=== PATIENT | male | born 1970 | race Two or more races ===

== ENCOUNTER 2024-08-05 20:56 | Emergency (ER) | payer OTHER, MEDICAID, SELFPAY ==
[2024-08-05 20:57] VITALS: BMI 34.1
[2024-08-05 21:06] VITALS: BP 166/99; PULSE 76; RESP 18; TEMP 36.7; O2SAT 99
--- NOTE | 2024-08-05 21:08 | EKG_ITS ---
[facility] Test Date: 2024-08-05 Pat Name: JERRY MUSTAFA Department: Room: - Gender: Male Hand Assembler: : 1970 Requested By: Sandro Fiore Order Number: [id number] Reading MD: Sandro Fiore Measurements Intervals [place] Rate: 79 P: 22 IL: 153 QRS: -40 QRSD: 103 T: 20 QT: 383 QTc: 439 Interpretive Statements SINUS RHYTHM LEFT AXIS DEVIATION [QRS AXIS < -30] PATTERN CONSISTENT WITH PULMONARY DISEASE Compared to ECG 02/24/2024 00:10:51 Left-axis deviation now present Left anterior fascicular block no longer present /store/S0/[id number]
--- NOTE | 2024-08-05 21:57 | PD.EDANX ---
ED Anxiety RME/HPI General Chief Complaint: General Adult/Misc Complain Stated Complaint: CHILLS/HIGH BP X30MIN Time Seen by Provider: 08/05/24 21:22 Arrival date/time: 08/05/24 20:56 53M with history of HTN and anxiety presents to ED with 30 min of heart palps, chills, and high BP at home. Patient denies CP and SOB. Patient states he usually takes anxiety meds, but he ran out. Patient also denies URI symptoms and fever. Limitations: no limitations Related Data Home Medications ?Medication ?Instructions ?Recorded ?Confirmed atorvastatin 40 mg tablet 40 mg PO HS 02/16/24 02/17/24 multivitamin 1 tab PO QDAY 02/16/24 02/17/24 simvastatin 20 mg tablet (Zocor) 20 mg PO QPM 02/16/24 02/17/24 Previous Rx's ?Medication ?Instructions ?Recorded docusate sodium 100 mg capsule 100 mg PO BID #40 caps 02/17/24 (Colace) hydrocodone 5 mg-acetaminophen 325 1 tab PO Q6H PRN pain (scale score 02/17/24 mg tablet 7-10) #15 tabs ibuprofen 600 mg tablet 600 mg PO Q8H PRN pain (scale 02/17/24 score 4-6) #15 tabs lactulose 10 gram/15 mL (15 mL) 10 g (15 mL) PO QDAY PRN 02/22/24 oral solution constipation #600 mL lorazepam 0.5 mg tablet (Ativan) 0.5 mg PO QDAY PRN anxiety #7 tabs 02/24/24 Allergies Allergy/AdvReac Type Severity Reaction Status Date / Time No Known Allergies Allergy Verified 08/05/24 21:00 Review of Systems Review of Systems Systems Reviewed: All systems reviewed, normal except as documented Constitutional Constitutional: Reports system reviewed and no additional complaints, except as documented, Reports as per HPI, Reports chills, Denies fever(s) and Denies headache(s) ENT Ears, Nose, Mouth, and Throat: Denies disequilibrium and Denies headache(s) Cardiovascular Cardiovascular: Reports system reviewed and no additional complaints, except as documented, Reports as per HPI, Denies chest pain, Denies dyspnea and Reports palpitations Respiratory Respiratory: Reports system reviewed and no additional complaints, except as documented, Denies cough and Denies dyspnea Gastrointestinal Gastrointestinal: Reports system reviewed and no additional complaints, except as documented, Denies abdominal pain, Denies nausea and Denies vomiting Neurologic Neurologic: Reports system reviewed and no additional complaints, except as documented, Denies confusion, Denies disequilibrium and Denies headache(s) Psychiatric Psychiatric: Reports as per HPI, Reports anxiety and Denies confusion Endocrine Endocrine: Reports palpitations Past Medical History Past Medical History NEUROLOGIC: Negative Neurological Disorders or Seizures CARDIAC: Positive Cardiac Disorders, Hypercholesterolemia and Hypertension (not taking meds); Negative Congestive Heart Failure RESPIRATORY: Negative Chronic Obstructive Pulmonary Disease (COPD) GASTROINTESTINAL: Positive Gastrointestinal Disorders and Obesity GENITOURINARY: Negative Genitourinary Disorders or Renal Disease MUSCULOSKELETAL: Positive Musculoskeletal Disorders and Fractures (right first toe) ENDOCRINE: Negative Endocrine Disorders, Diabetes Mellitus Type 1 or Diabetes Mellitus Type 2 HEMATOLOGIC: Negative Blood Disorders PSYCHO/SOCIAL: Positive Anxiety (no meds) OTHER HISTORY: Positive Hospitalization (HTN) and Chicken Pox; Negative Autoimmune Disease, Shingles, Falls, Blood Transfusions, Blood Transfusion Reaction, Anesthesia Reactions or Cancer Family History FAMILY HISTORY: Positive Family Cancer; Negative Family Psychiatric Problems, Family Respiratory Disorders, Family Cardiac Disorders, Family Gastrointestinal Problems, Family Surgery or Family Anesthesia Reaction Social History SMOKING STATUS: Never smoker ED Exam General Limitations: Present no limitations General appearance: Present alert, in no apparent distress and anxious Head Head exam: Present atraumatic Eye Eye exam: Present normal appearance, PERRL and EOMI ENT ENT exam: Present normal exam, normal oropharynx and mucous membranes moist Neck Neck exam: Present normal inspection, full ROM and trachea midline Chest Chest inspection: Present normal inspection and symmetric chest wall rise Respiratory Respiratory exam: Present normal lung sounds bilaterally Cardiovascular Cardiovascular exam: Present regular rate, normal rhythm and normal heart sounds Abdominal Exam Abdominal exam: Present soft and normal bowel sounds Extremities Exam Extremities exam: Present normal inspection and full ROM Back Exam Back exam: Present normal inspection and full ROM Neurological Exam Neurological exam: Present alert, oriented X3 and CN II-XII intact Psychiatric Psychiatric exam: Present normal affect and normal mood Skin Skin exam: Present warm, dry, intact and normal color Course Quality Measures none Orders Category Date Time Status EKG (ED ONLY) *Do not use* NOW Care 08/05/24 21:08 Completed EKG (ED Only) Stat Exams 08/05/24 21:08 Draft Diazepam [Valium] Med 08/05/24 21:23 Discontinued 10 mg PO X1 ONE Vital Signs Vital signs: Vital Signs Temperature 98.1 F 08/05/24 21:06 Pulse Rate 76 08/05/24 21:06 Respiratory Rate 18 08/05/24 21:06 Blood Pressure 166/99 H 08/05/24 21:06 Pulse Oximetry (%) 99 08/05/24 21:06 Oxygen Delivery Method Room Air 08/05/24 21:06 Anxiety MDM Narrative MDM Narrative: 53M with history of HTN and anxiety presents to ED with 30 min of heart palps, chills, and high BP at home. Patient denies CP and SOB. Patient states he usually takes anxiety meds, but he ran out. Patient also denies URI symptoms and fever. Physical exam reveals clear ENT and lungs. RRR. Patient is afebrile, alert, but anxious. EKG is NSR. Valium relieve symptoms. Patient data External records reviewed:: [facility] previous records Clinical information provided by:: patient Social determinants that could affect healthcare access:: mental health Patient has the following chronic illnesses:: HTN and anxiety How is presenting disease/condition affected by chronic disease/condition?: exacerbated by Evaluation data The following diagnostics were reviewed and interpreted by me:: EKG tracing(s) Lab and/or radiology exams considered but not ordered:: ordered Interpretation Summary: above Medications / Prescriptions Medications or Prescriptions considered but not ordered:: ordered Medication administrations:: Medication Administration History Discontinued Medications Diazepam (Diazepam 5 Mg Tablet) 10 mg PO X1 ONE Stop: 08/05/24 21:24 Consultations Consultation(s) initiated? (list below): No Diagnosis Differential diagnosis anxiety: hyperventilation, panic disorder, acute anxiety and other (ACS) Most likely diagnosis given after review of the tests above:: anxiety Admission Indicated Admission indicated?: not indicated Admission Request Was there a request for admission?: No Disposition Plan Disposition Plan: Discharge Discharge Attestation Discharge Attestation: The patient and all family members were given an opportunity to ask questions and understood the discharge instructions. Discharge instructions specifically effects, indications for sooner follow up or return to the emergency department, and the expected course of current diagnosis. Patient condition: Stable Discharge Plan Plan Patient Disposition: HOME (Self Care) Disposition Comment: Stable Prescriptions/Referrals Prescriptions/Med Rec: No Action multivitamin Tablet 1 tab PO QDAY atorvastatin 40 mg tablet 40 mg PO HS Patient Comments: take 1 tablet by mouth once daily simvastatin [Zocor] 20 mg Tablet 20 mg PO QPM docusate sodium [Colace] 100 mg capsule 100 mg PO BID Qty: 40 0RF ibuprofen 600 mg tablet 600 mg PO Q8H PRN (Reason: pain (scale score 4-6)) Qty: 15 0RF hydrocodone-acetaminophen 5-325 mg tablet 1 tab PO Q6H MDD 4 PRN (Reason: pain (scale score 7-10)) Qty: 15 0RF lactulose 10 gram/15 mL (15 mL) solution 10 g PO QDAY PRN (Reason: constipation) Qty: 600 0RF lorazepam [Ativan] 0.5 mg tablet 0.5 mg PO QDAY PRN (Reason: anxiety) Qty: 7 0RF Referrals: Jose Guadalupe Cardona MD [Primary Care Provider] - In 1 week Problem List Clinical Impression: Anxiety Patient/Caregiver Discharge Instructions Education Materials: Your Body's Response to Anxiety Additional Instructions: Please follow-up with PCP within 24-48 hours and return immediately if symptoms worsen. Print Language: Citizen Of [place] Stand Alone Forms: Patient Portal Info Letter PA/SIDE PIECE COVERER Supervising Physician MARINA/TYRONE Supervising Physician: Dr. Mi
[2024-08-05] MEDS: DIAZEPAM 5 MG TABLET 10 MG PO (22:25)
[2024-08-05 23:18] VITALS: BP 148/101; BP 149/96; PULSE 66; RESP 17; O2SAT 99
== END 2024-08-05 23:40 | disposition home or self-care (01) ==
PROVIDERS: Emergency Provider Emergency Medicine; PCP Family Medicine
DX: F41.9 Anxiety disorder, unspecified (principal); I10 Essential (primary) hypertension
CPT/HCPCS: 93005; 99283; A9270

== ENCOUNTER 2024-11-23 18:02 | Emergency (ER) | payer OTHER, MEDICAID, SELFPAY ==
--- NOTE | 2024-11-23 18:56 | EKG_ITS ---
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
[2024-11-23 19:27] VITALS: BP 124/77; PULSE 73; RESP 20; TEMP 36.8; O2SAT 97
--- NOTE | 2024-11-23 19:41 | XR_ITS ---
Examination: PA chest single view TECHNIQUE: Upright PA chest single view Date and time: November 23, 2024, 2018 hours Comparison February 24, 2024 INDICATIONS: Chest pain today. FINDINGS: Normal heart size. Lungs are clear. The osseous structures are intact IMPRESSION: No active disease.
--- NOTE | 2024-11-23 19:41 | PD.EDCHEST ---
ED Chest Pain RME/HPI General Chief Complaint: Chest Pain Stated Complaint: CHEST PAIN X 2 DAYS Time Seen by Provider: 11/23/24 19:40 Arrival date/time: 11/23/24 18:02 54M with history of HTN and anxiety presents to ED with several days of CP. Patient denies URI symptoms and SOB. Limitations: no limitations Related Data Home Medications ?Medication ?Instructions ?Recorded ?Confirmed atorvastatin 40 mg tablet 40 mg PO HS 02/16/24 02/17/24 multivitamin 1 tab PO QDAY 02/16/24 02/17/24 simvastatin 20 mg tablet (Zocor) 20 mg PO QPM 02/16/24 02/17/24 Previous Rx's ?Medication ?Instructions ?Recorded docusate sodium 100 mg capsule 100 mg PO BID #40 caps 02/17/24 (Colace) hydrocodone 5 mg-acetaminophen 325 1 tab PO Q6H PRN pain (scale score 02/17/24 mg tablet 7-10) #15 tabs ibuprofen 600 mg tablet 600 mg PO Q8H PRN pain (scale 02/17/24 score 4-6) #15 tabs lactulose 10 gram/15 mL (15 mL) 10 g (15 mL) PO QDAY PRN 02/22/24 oral solution constipation #600 mL lorazepam 0.5 mg tablet (Ativan) 0.5 mg PO QDAY PRN anxiety #7 tabs 02/24/24 Allergies Allergy/AdvReac Type Severity Reaction Status Date / Time No Known Allergies Allergy Verified 11/23/24 18:07 Review of Systems Review of Systems Systems Reviewed: All systems reviewed, normal except as documented Constitutional Constitutional: Reports system reviewed and no additional complaints, except as documented, Denies fever(s) and Denies headache(s) ENT Ears, Nose, Mouth, and Throat: Denies disequilibrium and Denies headache(s) Cardiovascular Cardiovascular: Reports system reviewed and no additional complaints, except as documented, Reports as per HPI, Reports chest pain and Denies dyspnea Respiratory Respiratory: Reports system reviewed and no additional complaints, except as documented, Denies cough and Denies dyspnea Gastrointestinal Gastrointestinal: Reports system reviewed and no additional complaints, except as documented, Denies abdominal pain, Denies nausea and Denies vomiting Neurologic Neurologic: Reports system reviewed and no additional complaints, except as documented, Denies confusion, Denies disequilibrium and Denies headache(s) Psychiatric Psychiatric: Denies confusion Past Medical History Past Medical History NEUROLOGIC: Negative Neurological Disorders or Seizures CARDIAC: Positive Cardiac Disorders, Hypercholesterolemia and Hypertension (not taking meds); Negative Congestive Heart Failure RESPIRATORY: Negative Chronic Obstructive Pulmonary Disease (COPD) GASTROINTESTINAL: Positive Gastrointestinal Disorders and Obesity GENITOURINARY: Negative Genitourinary Disorders or Renal Disease MUSCULOSKELETAL: Positive Musculoskeletal Disorders and Fractures (right first toe) ENDOCRINE: Negative Endocrine Disorders, Diabetes Mellitus Type 1 or Diabetes Mellitus Type 2 HEMATOLOGIC: Negative Blood Disorders PSYCHO/SOCIAL: Positive Anxiety (no meds) OTHER HISTORY: Positive Hospitalization (HTN) and Chicken Pox; Negative Autoimmune Disease, Shingles, Falls, Blood Transfusions, Blood Transfusion Reaction, Anesthesia Reactions or Cancer Family History FAMILY HISTORY: Positive Family Cancer; Negative Family Psychiatric Problems, Family Respiratory Disorders, Family Cardiac Disorders, Family Gastrointestinal Problems, Family Surgery or Family Anesthesia Reaction Social History SMOKING STATUS: Never smoker ED Exam General Limitations: Present no limitations General appearance: Present alert, in no apparent distress and anxious (mild) Head Head exam: Present atraumatic Eye Eye exam: Present normal appearance, PERRL and EOMI ENT ENT exam: Present normal exam, normal oropharynx and mucous membranes moist Neck Neck exam: Present normal inspection, full ROM and trachea midline Chest Chest inspection: Present normal inspection and symmetric chest wall rise Respiratory Respiratory exam: Present normal lung sounds bilaterally Cardiovascular Cardiovascular exam: Present regular rate, normal rhythm and normal heart sounds Abdominal Exam Abdominal exam: Present soft and normal bowel sounds Extremities Exam Extremities exam: Present normal inspection and full ROM Back Exam Back exam: Present normal inspection and full ROM Neurological Exam Neurological exam: Present alert, oriented X3 and CN II-XII intact Psychiatric Psychiatric exam: Present normal affect and normal mood Skin Skin exam: Present warm, dry, intact and normal color Course Quality Measures none Orders Category Date Time Status EKG (ED ONLY) *Do not use* NOW Care 11/23/24 18:56 Completed EKG (ED Only) Stat Exams 11/23/24 18:56 Draft XR chest 1V portable Stat Exams 11/23/24 19:41 Completed CBC Stat Lab 11/23/24 20:44 Completed Comprehensive Metabolic Panel Stat Lab 11/23/24 20:44 Completed D-Dimer Stat Lab 11/23/24 20:44 Completed Drug Screen,Urine Stat Lab 11/23/24 19:40 Completed Troponin I Stat Lab 11/23/24 20:44 Completed Vital Signs Vital signs: Vital Signs Temperature 98.3 F 11/23/24 19:27 Pulse Rate 73 11/23/24 19:27 Respiratory Rate 20 11/23/24 19:27 Blood Pressure 124/77 11/23/24 19:27 Pulse Oximetry (%) 97 11/23/24 19:27 Oxygen Delivery Method Room Air 11/23/24 19:27 O2 at 97% on RA and WNLs Chest Pain MDM Narrative MDM Narrative:: 54M with history of HTN and anxiety presents to ED with several days of CP. Patient denies URI symptoms and SOB. Physical exam reveals normal lungs. RRR. Normal WOB. Patient is afebrile, alert, but mildly anxious. EKG is NSR. CXR normal. Normal trop. Normal d-dimer. CMP and CBC unremarkable. Patient data External records reviewed:: [facility] previous records Clinical information provided by:: patient Social determinants that could affect healthcare access:: mental health Patient has the following chronic illnesses:: HTN and anxiety How is presenting disease/condition affected by chronic disease/condition?: exacerbated by Evaluation data The following diagnostics were reviewed and interpreted by me:: lab results, radiology exam(s) and EKG tracing(s) Lab and/or radiology exams considered but not ordered:: ordered Interpretation Summary: above Medications / Prescriptions Medications or Prescriptions considered but not ordered:: not ordered Medication administrations:: n/a Consultations Consultation(s) initiated? (list below): No Diagnosis Chest Pain Differential Diagnosis: fracture of rib, pneumothorax, stable angina, unstable angina pectoris, atypical chest pain, st elevation myocardial infarction, costochondritis, chest pain, biliary colic and other (anxiety) Most likely diagnosis given after review of the tests above:: atypical chest pain and anxiety Admission Indicated Admission indicated?: not indicated Admission Request Was there a request for admission?: No Disposition Plan Disposition Plan: Discharge Discharge Attestation Discharge Attestation: The patient and all family members were given an opportunity to ask questions and understood the discharge instructions. Discharge instructions specifically effects, indications for sooner follow up or return to the emergency department, and the expected course of current diagnosis. Patient condition: Stable Discharge Plan Plan Patient Disposition: HOME (Self Care) Discharge Disposition comment: Stable Prescriptions/Referrals Prescriptions/Med Rec: No Action multivitamin Tablet 1 tab PO QDAY atorvastatin 40 mg tablet 40 mg PO HS Patient Comments: take 1 tablet by mouth once daily simvastatin [Zocor] 20 mg Tablet 20 mg PO QPM docusate sodium [Colace] 100 mg capsule 100 mg PO BID Qty: 40 0RF ibuprofen 600 mg tablet 600 mg PO Q8H PRN (Reason: pain (scale score 4-6)) Qty: 15 0RF hydrocodone-acetaminophen 5-325 mg tablet 1 tab PO Q6H MDD 4 PRN (Reason: pain (scale score 7-10)) Qty: 15 0RF lactulose 10 gram/15 mL (15 mL) solution 10 g PO QDAY PRN (Reason: constipation) Qty: 600 0RF lorazepam [Ativan] 0.5 mg tablet 0.5 mg PO QDAY PRN (Reason: anxiety) Qty: 7 0RF Referrals: Luna ATWOOD,Rosy Giraldo, ATMOSPHERIC DRIER TENDER [Primary Care Provider] - In 1 week Problem List Clinical Impression: Atypical chest pain, Anxiety Patient/Caregiver Discharge Instructions Education Materials: ED Anxiety Reaction Additional Instructions: Please follow-up with PCP within 24-48 hours and return immediately if symptoms worsen. Print Language: [place] Stand Alone Forms: Patient Portal Info Letter MARINA/ATMOSPHERIC DRIER TENDER Supervising Physician MARINA/TYRONE Supervising Physician: Dr. Mi
[2024-11-23 21:08] LABS: Basophils # (Auto) 0.0 Thou/mm3 (0.0-0.2); Basophils % (Auto) 1 % (0-2.5); Eosinophils # (Auto) 0.2 Thou/mm3 (0.0-0.5); Eosinophils % (Auto) 3 % (0-10); Hematocrit 38.4 % (41.0-53.0); Hemoglobin 13.7 g/dL (13.5-16.0); Immature Granulocytes Auto 0.02 Thou/mm3 (0.00-0.00); Lymphocytes # (Auto) 2.4 Thou/mm3 (1.0-4.8); Lymphocytes % (Auto) 33 % (10-50); Mean Corpuscular HGB Conc 35.7 g/dl (31.0-37.0); Mean Corpuscular Hemoglobin 29.5 pg (25.0-35.0); Mean Corpuscular Volume 83 fL (80-100); Monocytes # (Auto) 0.7 Thou/mm3 (0.0-0.8); Monocytes % (Auto) 10 % (0-12); Neutrophils # (Auto) 3.8 Thou/mm3 (1.8-7.7); Neutrophils % (Auto) 52 % (37-80); Nucleated Red Blood Cell # 0.00 Thou/mm3 (0.00-0.00); Nucleated Red Blood Cell % 0 /100 WBC (0); Platelet Count 196 Thou/mm3 (140-440); RDW Standard Deviation 38.7 fL (35.1-43.9); Red Blood Count 4.64 Miln/mm3 (4.50-5.90); White Blood Count 7.2 Thou/mm3 (3.8-10.6)
[2024-11-23 21:13] LABS: Alanine Aminotransferase 24 U/L (10-49); Albumin, Serum 4.4 gm/dL (3.5-5.0); Albumin/Globulin Ratio 1.5 (1.2-2.2); Alkaline Phosphatase 75 U/L (46-116); Anion Gap 8 (7-16); Aspartate Amino Transferase 24 U/L (0-34); BUN/Creatinine Ratio 13 Ratio (12-20); Bilirubin,Total 0.6 mg/dL (0.3-1.2); Blood Urea Nitrogen 14 mg/dL (9-23); Calcium 9.4 mg/dL (8.3-10.6); Calcium (Corrected) 9.4 mg/dL (8.5-10.1); Carbon Dioxide 23.9 mMol/L (20.0-31.0); Chloride 104 mMol/L (98-107); Creatinine (Component) 1.1 mg/dL (0.6-1.3); Globulin 3.0 gm/dL (2.3-3.5); Glucose 113 mg/dL (74-106); Osmolality,Calculated 273 (275-295); Potassium 3.6 mMol/L (3.4-5.1); Sodium 136 mMol/L (136-145); Total Protein 7.4 gm/dL (5.7-8.2); Troponin I < 0.002 ng/mL (0.0-0.045); eGFR > 60 See Note
[2024-11-23 21:20] LABS: Amphetamine/Methamp Scrn,U Negative (Negative); Barbiturate Screen,Urine Negative (Negative); Benzodiazepines Screen,Urine Negative (Negative); Benzoylecgonine Screen, Ur Negative (Negative); Fentanyl Screen,Urine Negative (Negative); Opiate Screen,Urine Negative (Negative); THC Screen,Urine Negative (Negative)
[2024-11-23 22:21] LABS: D-Dimer < 250 ng/mL (<600)
== END 2024-11-23 22:37 | disposition home or self-care (01) ==
PROVIDERS: Physician Assistant; Emergency Provider Emergency Medicine; PCP Nurse Practitioner Family
DX: R07.89 Other chest pain (principal); F41.9 Anxiety disorder, unspecified
CPT/HCPCS: 36415; 71045; 80053; 80307; 84484; 85025; 85379; 93005; 99283

== ENCOUNTER 2025-01-08 11:15 | Emergency (ER) | payer OTHER, MEDICAID, SELFPAY ==
[2025-01-08 11:41] VITALS: BP 138/81; PULSE 61; RESP 18; TEMP 36.7; O2SAT 99
[2025-01-08 11:42] VITALS: BMI 32.3
--- NOTE | 2025-01-08 12:01 | XR_ITS ---
Examination: Lumbar spine 3 views Technique one AP lateral coned lateral lower lumbar spine 3 views Date and time: 01 08, 2024, 1219 hrs. Indications: Sudden onset lower back pain today. Findings: Satisfactory alignment lumbar vertebral bodies. Moderate lumbar spondylosis. Mild disc narrowing L5-S1. No fracture Impression: Mild degenerative disc disease L5-S1. Moderate lumbar spondylosis.
--- NOTE | 2025-01-08 12:02 | EDNOTE_ITS ---
<Statement entered by Rachel Harrison MD - 01/09/25 06:28> As co-signing physician, I was present and available for consult prn. I concur with the plan and care as documented by the midlevel provider. ED Back Injury Pain RME/HPI General Chief Complaint: Back Pain/Injury Stated Complaint: Lower back pain since this morning Time Seen by Provider: 01/08/25 11:27 Arrival date/time: 01/08/25 11:15 RME / HPI RME / HPI Narrative: 54-year-old male patient with history of mild on and off low back pain, came in for evaluation regarding severe low back pain. Patient woke up this morning with severe low back pain, pain radiates to the right lower leg in the buttock area. And posterior thigh. Described as dull ache, severity moderate. Patient denies any saddle anesthesia denies any bladder incontinence denies any bowel incontinence. Patient is ambulatory. Denies any fever. Denies any dysuria. Denies any recent fall or trauma. Patient took Motrin 800 mg with no relief. Related Data Home Medications ?Medication ?Instructions ?Recorded ?Confirmed atorvastatin 40 mg tablet 40 mg PO HS 02/16/24 4 multivitamin 1 tab PO QDAY 02/16/2402/16 simvastatin 20 mg tablet (Zocor) 20 mg PO QPM 02/16/24 02/17/24 Previous Rx's ?Medication ?Instructions ?Recorded docusate sodium 100 mg capsule 100 mg PO BID #40 caps 02/17/24 (Colace) hydrocodone 5 mg-acetaminophen 325 1 tab PO Q6H PRN pa in (scale score 02/17/24 mg tablet 7-10) #15 tabs ibuprofen 600 mg tablet 600 mg PO Q8H PRN pain (scal e 02/17/24 score 4-6) #15 tabs lactulose 10 gram/15 mL (15 mL) 10 g (15 mL) PO QDAY P RN 02/22/24 oral solution constipation #600 mL lorazepam 0.5 mg tablet (Ativan) 0.5 mg PO QDAY PRN an xiety #7 tabs 02/24/24 ketorolac 10 mg tablet 10 mg PO Q8H PRN pain 5 days #20 01/08/25 tabs methocarbamol 500 mg tablet 500 mg PO TID PRN pain #20 tabs 01/08/25 Allergies Allergy/AdvReac Type Severity Reaction Status Date / Time No Known Allergies Allergy Verified 01/08/25 11:20 Review of Systems Review of Systems Narrative Review of Systems: Review of system reviewed and within normal limits except mentioned in HPI ED Exam Narrative Physical exam: VITAL SIGNS: Reviewed. GENERAL APPEARANCE: Alert and interactive, follows commands, no acute distress, HEAD AND FACE: Non-traumatic. ENT: PERRL, pink conjunctivitis, eyelid no trauma, Mucous membrane moist. NECK: Supple, nontender, no nuchal rigidity. CHEST: No tenderness, no crepitus, no paradoxical movement, no retractions. LUNGS: Clear, well ventilated, symmetric, no rales, no wheezing, no ronchi, no stridor, good breath sounds bilaterally. HEART: Regular rate, regular rhythm, no murmur, no gallops. ABDOMEN: Soft, positive bowel sounds, nondistended, no guarding, nontender, no rebound, no masses, RECTAL: Deferred. GENITAL: Deferred. NEUROLOGICAL: Gross motor function intact sensory function intact, Appropriate for age. MUSCULOSKELETAL: low back tenderness, positive straight leg raising test at 45 degrees on the right, full range of motion. EXTREMITIES: Nontender, full range of motion. SKIN: Color pink, dry, no rash, no lacerations, no abrasions, no contusions. LYMPHATICS: Deferred. Course Quality Measures none Orders Category Date Time Status XR lumbar spine 2-3V Stat Exams 01/08/25 12:01 Completed UA, C/S IF [Urinalysis, C/S if Indicated] Stat Lab 01/08/25 13:37 Completed Dexamethasone Inj [Decadron Inj] Med 01/08/25 12:01 Discontinued 10 mg IM X1 ONE Ketorolac Inj [Toradol Inj] Med 01/08/25 12:01 Discontinued 30 mg IM X1 ONE methocarbamoL [Robaxin] Med 01/08/25 12:01 Discontinued 500 mg PO X1 ONE Vital Signs Vital signs: Vital Signs Temperature 98.1 F 01/08/25 11:41 Pulse Rate 61 01/08/25 11:41 Respiratory Rate 18 01/08/25 11:41 Blood Pressure 138/81 H 01/08/25 11:41 Pulse Oximetry (%) 99 01/08/25 11:41 Oxygen Delivery Method Room Air 01/08/25 11:41 Back Pain / Injury [facility] Narrative [facility] Narrative:: 54-year-old male patient with history of mild on and off low back pain, came in for evaluation regarding severe low back pain. Patient woke up this morning with severe low back pain, pain radiates to the right lower leg in the buttock area. And posterior thigh. Described as dull ache, severity moderate. Patient denies any saddle anesthesia denies any bladder incontinence denies any bowel incontinence. Patient is ambulatory. Denies any fever. Denies any dysuria. Denies any recent fall or trauma. Patient took Motrin 800 mg with no relief. Urinalysis negative for UTI. X-ray of the lumbar spine showed degenerative disc disease between L5 and S1 causing the patient's back pain. No further imaging needed at this time there is no sign of cauda equina syndrome. Patient is ambulatory. Was advised to follow-up with PCP and for referral to spine surgeon as needed. Patient data External records reviewed:: None Clinical information provided by:: patient Social determinants that could affect healthcare access:: none Patient has the following chronic illnesses:: None How is presenting disease/condition affected by chronic disease/condition?: no chronic disease Evaluation data The following diagnostics were reviewed and interpreted by me:: lab results and radiology exam(s) Lab and/or radiology exams considered but not ordered:: None Interpretation Summary: See results [facility] Medications / Prescriptions Medications or Prescriptions considered but not ordered:: None Medication administrations:: Medication Administration History Discontinued Medications Dexamethasone Sodium Phosphate (Dexamethasone Sod Phos Inj 10 Mg/Ml Vial) 10 mg IM X1 ONE Stop: 01/08/25 12:02 Last Admin: 01/08/25 13:02 Dose: 10 mg Documented By: RAMANA Ketorolac Tromethamine (Ketorolac Inj 60 Mg/2 Ml Vial) 30 mg IM X1 ONE Stop: 01/08/25 12:02 Last Admin: 01/08/25 13:01 Dose: 30 mg Documented By: RAMANA Methocarbamol (Methocarbamol 500 Mg Tablet) 500 mg PO X1 ONE Stop: 01/08/25 12:02 Last Admin: 01/08/25 13:01 Dose: 500 mg Documented By: RAMANA Robaxin, Toradol and Decadron IM Consultations Consultation(s) initiated? (list below): No Diagnosis Differential diagnosis back pain/injury: lumbar radiculopathy and sciatica Most likely diagnosis given after review of the tests above:: Degenerative disc disease L5-S1 Admission Indicated Admission indicated?: not indicated Admission Request Was there a request for admission?: No Disposition Plan Disposition Plan: Discharge Discharge Attestation Discharge Attestation: The patient was given an opportunity to ask questions and understood the discharge instructions. Discharge instructions specifically effects, indications for sooner follow up or return to the emergency department, and the expected course of current diagnosis. Patient condition: Stable Discharge Plan Plan Patient Disposition: HOME (Self Care) Discharge Disposition comment: Stable Prescriptions/Referrals Prescriptions/Med Rec: New methocarbamol 500 mg tablet 500 mg PO TID PRN (Reason: pain) Qty: 20 0RF ketorolac 10 mg tablet 10 mg PO Q8H PRN (Reason: pain) 5 Days Qty: 20 0RF Rx Instructions: Take your medication with food No Action multivitamin Tablet 1 tab PO QDAY atorvastatin 40 mg tablet 40 mg PO HS Patient Comments: take 1 tablet by mouth once daily simvastatin [Zocor] 20 mg Tablet 20 mg PO QPM docusate sodium [Colace] 100 mg capsule 100 mg PO BID Qty: 40 0RF ibuprofen 600 mg tablet 600 mg PO Q8H PRN (Reason: pain (scale score 4-6)) Qty: 15 0RF hydrocodone-acetaminophen 5-325 mg tablet 1 tab PO Q6H MDD 4 PRN (Reason: pain (scale score 7-10)) Qty: 15 0RF lactulose 10 gram/15 mL (15 mL) solution 10 g PO QDAY PRN (Reason: constipation) Qty: 600 0RF lorazepam [Ativan] 0.5 mg tablet 0.5 mg PO QDAY PRN (Reason: anxiety) Qty: 7 0RF Referrals: Elbert Iglesias PA-C [Primary Care Provider] - In 1 week Problem List Clinical Impression: Degenerative disc disease at L5-S1 level Patient/Caregiver Discharge Instructions Discharge Activity: activity as tolerated Education Materials: Back Safety Bed Additional Instructions: Thank you for the opportunity for serving you today. You are stable for discharged . You are advised to: Follow-up with your PCP in 1 to 2 days and as per referral to spine surgeon Return to ED for worsening of symptoms Increase oral fluids Take medication as prescribed Print Language: [place] Stand Alone Forms: [employer] Award Info., Patient Portal Info Letter MARINA/POPCORN ATTENDANT Supervising Physician PA/POPCORN ATTENDANT Supervising Physician: MD Hunter
[2025-01-08] MEDS: KETOROLAC INJ 60 MG/2 ML VIAL 30 MG IM (13:01)
[2025-01-08] MEDS: DEXAMETHASONE SOD PHOS INJ 10 MG/ML VIAL IM (13:02)
[2025-01-08 13:46] LABS: Collection Type, Urine Clean Catch; Squamous Epithelial Cell,Urine 0 /hpf (0-5)
[2025-01-08 13:54] LABS: Bacteria,Urine Rare; Bilirubin,Urine Negative (Negative); Blood,Urine Negative (Negative); Clarity,Urine Clear (Clear/Hazy); Color,Urine Yellow (Lt Yel-Yel); Culture Indicated,Urine Not Indicated; Glucose, Urine Negative (Negative); Ketones,Urine Negative (Negative); Leukocyte Esterase,Urine Negative (Negative); Nitrite,Urine Negative (Negative); PH,Urine 6.5 (5.0-7.0); Protein,Urine 1+ (Neg - Trace); RBC,Urine 3 /hpf (0-3); Specific Gravity,Urine 1.038 (1.001-1.035); Urobilinogen,Urine 2.0 mg/dL (0.0-1.0); WBC,Urine 1 /hpf (0-5)
== END 2025-01-08 14:45 | disposition home or self-care (01) ==
PROVIDERS: Nurse Practitioner Family; Emergency Provider Nurse Practitioner Family; PCP Physician Assistant
DX: M51.372 Other intervertebral disc degeneration, lumbosacral region with discogenic back pain and lower extremity pain (principal)
CPT/HCPCS: 72100; 81001; 96372; 99283; J1100; J1885